=== PATIENT | female | born 1995 ===

== ENCOUNTER 2019-06-15 16:04 | Outpatient (CLI) | payer OTHER | END 2019-06-15 21:50 | disposition home or self-care (01) | LOC: OBS/DEL 16:04 | DX: O26.893 Other specified pregnancy related conditions, third trimester (principal); S93.491A Sprain of other ligament of right ankle, initial encounter; Z04.3 Encounter for examination and observation following other accident; W18.39XA Other fall on same level, initial encounter; Y93.89 Activity, other specified; Y92.098 Other place in other non-institutional residence as the place of occurrence of the external cause; Y99.8 Other external cause status ==

== ENCOUNTER → 2019-06-15 | Emergency (ER) | payer OTHER ==
[~2019-06-15] VITALS: Ht 152.4 cm; Wt 64.0 kg
[~2019-06-15] MED LIST: PRENATA CHEWAB1 EACH
== END | disposition left against medical advice (07) ==
LOC: ER 13:18
DX: Z53.20 Procedure and treatment not carried out because of patient's decision for unspecified reasons (principal)

== ENCOUNTER 2019-07-07 01:37 | Inpatient (IN) | payer OTHER ==
[~2019-07-07] VITALS: Ht 152.4 cm; Wt 69.4 kg
== END 2019-07-10 15:09 | disposition home or self-care (01) | DRG 807 ==
LOC: LDR 01:37 → OB/GYN 07-08 02:13
PROVIDERS: ADMIT Specialist
PROC: 3E0P7VZ Introduction of Hormone into Female Reproductive, Via Natural or Artificial Opening (ICD-10-PCS; 2019-07-07)
PROC: 3E033VJ Introduction of Other Hormone into Peripheral Vein, Percutaneous Approach (ICD-10-PCS; 2019-07-07)
PROC: 4A1HXCZ Monitoring of Products of Conception, Cardiac Rate, External Approach (ICD-10-PCS; 2019-07-07)
PROC: 10E0XZZ Delivery of Products of Conception, External Approach (ICD-10-PCS; principal; 2019-07-08)
PROC: 0UQGXZZ Repair Vagina, External Approach (ICD-10-PCS; 2019-07-08)
DX: O71.4 Obstetric high vaginal laceration alone (principal); Z37.0 Single live birth; Z3A.36 36 weeks gestation of pregnancy; Z22.330 Carrier of Group B streptococcus